=== PATIENT | male | born 1950 | race African-American/Black ===

== ENCOUNTER 2024-01-18 10:24 | Outpatient (CLI) | payer MEDICARE | END 2024-01-18 10:25 | disposition home or self-care (01) | LOC: BICCT 10:24 | PROVIDERS: ATTEND Family Medicine | DX: Z12.2 Encounter for screening for malignant neoplasm of respiratory organs (principal); Z87.891 Personal history of nicotine dependence; R91.8 Other nonspecific abnormal finding of lung field; J98.4 Other disorders of lung | CPT/HCPCS: 71271 ==